=== PATIENT | female | born 1960 | race African-American/Black ===

== ENCOUNTER 2018-01-17 17:50 | Emergency (ER) | payer OTHER ==
[~2018-01-17] VITALS: Ht 167.6 cm; Wt 81.7 kg
[~2018-01-17 17:50] MED LIST: PERCOCET 10-321 EACH PO
[2018-01-17] MEDS ORDERED: ENTECAVIR0.5 MG PO (18:32)
[2018-01-17] MEDS ORDERED: NAPROSYN500 MG PO (19:23)
[2018-01-17 19:38] VITALS: BP 131/68
== END 2018-01-17 19:38 | disposition home or self-care (01) ==
LOC: ER 17:50
DX: J02.9 Acute pharyngitis, unspecified (principal); G89.29 Other chronic pain; F17.210 Nicotine dependence, cigarettes, uncomplicated; M79.7 Fibromyalgia; I10 Essential (primary) hypertension